=== PATIENT | male | born 1985 | race Caucasian/White ===

== ENCOUNTER 2020-04-28 15:10 | Inpatient (IN) | payer SELFPAY ==
[2020-04-28] MEDS ORDERED: ACETAMINOPHEN 325 MG TABLET PO ONE (16:18)
[2020-04-28] MEDS ORDERED: RINGERS SOLUTION,LACTATED 1,000 ML IV ONE (16:18)
[2020-04-28] MEDS ORDERED: KETOROLAC TROMETHAMINE INJ/PF 30 MG/1 ML SDV IV ONE (16:18)
--- NOTE | 2020-04-28 16:19 | ER Document Report ---
ED Flu Like - General Chief Complaint: Nausea/Vomiting Stated Complaint: COUGH,FEVER,VOMITING,HEADACHE Time Seen by Provider: 04/28/20 15:58 Mode of Arrival: Ambulatory Information source: Patient Notes: 34-year-old male with a past medical history significant for hepatitis C, IV drug use presents to the emergency room complaining of a cough with shortness of breath, nausea, vomiting, body aches for the past 2 days. Subjective fever. Took ibuprofen around noon today without relief. He denies any recent travel. He denies any COVID-19 exposure. Patient does have a history of IV drug use. States he has not injected in the past 2 weeks. TRAVEL OUTSIDE OF THE [place] IN LAST 30 DAYS: No - Related Data Allergies/Adverse Reactions: seafood Allergy (Uncoded 04/28/20 16:06) Past Medical History - General Information source: Patient - Social History Smoking Status: Current Every Day Smoker Chew tobacco use (# tins/day): No Frequency of alcohol use: None Drug Abuse: Heroin, Marijuana, Prescription drugs Family History: Reviewed & Not Pertinent Patient has homicidal ideation: No GI Medical History: Reports: Hx Hepatitis Psychiatric Medical History: Reports: Hx Attention Deficit Hyperactivity Disorder Infectious Medical History: Reports: Hx Hepatitis - Immunizations Hx Diphtheria, Pertussis, Tetanus Vaccination: Yes Review of Systems - Review of Systems Constitutional: Fever EENT: No symptoms reported Cardiovascular: No symptoms reported Respiratory: Cough, Short of breath Gastrointestinal: Nausea, Vomiting. denies: Abdominal pain, Diarrhea, Constipation Genitourinary: No symptoms reported Musculoskeletal: Joint pain, Muscle pain Skin: No symptoms reported Hematologic/Lymphatic: No symptoms reported Neurological/Psychological: No symptoms reported -: Yes All other systems reviewed and negative Physical Exam - Vital signs Vitals: Temp 101.2 F H 04/28/20 15:11 - General General appearance: Appears well, Alert In distress: Mild - HEENT Head: Normocephalic, Atraumatic Eyes: Normal Pupils: PERRL External canal: Normal Tympanic membrane: Normal Sinus: Normal Nasal: Normal Pharynx: Normal Neck: Normal. No: Lymphadenopathy - Respiratory Respiratory status: No respiratory distress Chest status: Nontender Breath sounds: Normal Chest palpation: Normal - Cardiovascular Rhythm: Tachycardia Heart sounds: Normal auscultation Murmur: No - Abdominal Inspection: Normal Distension: No distension Bowel sounds: Normal Tenderness: Nontender Organomegaly: No organomegaly - Extremities General upper extremity: Nontender, Normal ROM, Normal temperature General lower extremity: Normal inspection, Nontender, Normal color, Normal ROM, Normal temperature, Normal weight bearing. No: Haydee's sign Elbow: Nontender, Other - Right elbow with full range of motion. It is nontender to palpation. There is mild erythema not consistent with cellulitis. - Neurological Neuro grossly intact: Yes Cognition: Normal Orientation: AAOx4 [place] Coma Scale Eye Opening: Spontaneous [place] Coma Scale Verbal: Oriented [place] Coma Scale Motor: Obeys Commands Minda Coma Scale Total: 15 Speech: Normal Motor strength normal: LUE, RUE, LLE, RLE Sensory: Normal - Skin Skin Temperature: Warm Skin Moisture: Dry Skin Color: Normal Notes: No concerns for cellulitis to left forearm, left antecubital area where patient states that he has injected in the past 2 weeks. Right elbow mild erythema but no sign of cellulitis. It is not warm or tender to palpation. Course - Re-evaluation Re-evalutation: 04/28/20 17:54 Reviewed patient's lab work with patient. Patient has a history of IV drug use. Asked patient if he had recently injected any spots on his body that could possibly be infected. Patient states he likes to be injected 2 weeks ago in his left forearm, and his left antecubital. Does state that his right elbow started bothering him 2 days ago. Denies any trauma or injury. Will get x-ray of the right elbow. No erythema. It is not warm or tender to palpation. He has full range of motion to the elbow. Negative chest x-ray. No obvious source at this time for his sepsis. Will get EKG, IV antibiotics ordered, urinalysis and remaining labs are still pending. 04/28/20 20:01 All labs were reviewed with the patient. He is aware of need for admission. He is agreeable to the admission. He is aware that the hospitalist Dr. Sousa will come to the emergency room to further evaluate him. Admission orders pending. - Vital Signs Vital signs: Temp Pulse Resp BP Pulse Ox 97.8 F 75 25 H 144/78 H 100 04/29/20 08:24 04/29/20 08:24 04/29/20 08:24 04/29/20 08:24 04/29/20 08:24 - Laboratory Result Diagrams: 04/29/20 05:26 04/29/20 05:26 Laboratory results interpreted by me: 04/28/20 04/28/20 16:39 16:39 WBC 25.4 H RDW 15.5 H Abs Neuts (Manual) 19.1 H Abs Lymphs (Manual) 4.8 H Abs Basophils (Manual) 0.3 H Sodium 135.8 L Glucose 117 H - Diagnostic Test Radiology reviewed: Reports reviewed - EKG Interpretation by Me EKG shows normal: Sinus rhythm Additional EKG results interpreted by me: 04/28/20 19:01 EKG was interpreted by ER physician Dr. Metzger No acute STEMI Normal sinus rhythm Rate of 86 Short MI interval No ST wave abnormalities Unchanged from previous EKG of 10/01/2014 - Consults Dr. Sousa Reason for consultation: 04/28/20 20:00 Reviewed symptoms, lab values, meds given. Agrees with plan of care, accepts admission. Will come to the emergency room to fully evaluate patient. Consulted provider: will come to ER Discharge - Discharge Clinical Impression: Sepsis Qualifiers: Sepsis type: sepsis due to unspecified organism Sepsis acute organ dysfunction status: without acute organ dysfunction Qualified Code(s): A41.9 - Sepsis, unspecified organism Condition: Stable Disposition: ADMITTED INPATIENT Admitting Provider: Angelito Sousa Unit Admitted: Medical Floor
--- NOTE | 2020-04-28 16:40 | RADIOLOGY REPORT (SQ) ---
EXAM DESCRIPTION: CHEST SINGLE VIEW IMAGES COMPLETED DATE/TIME: 04/28/2020 4:33 pm REASON FOR STUDY: cough COMPARISON: None. EXAM PARAMETERS: NUMBER OF VIEWS: One view. TECHNIQUE: Single frontal radiographic view of the chest acquired. RADIATION DOSE: NA LIMITATIONS: None. FINDINGS: LUNGS AND PLEURA: No opacities, masses or pneumothorax. No pleural effusion. MEDIASTINUM AND HILAR STRUCTURES: No masses. Contour normal. HEART AND VASCULAR STRUCTURES: Heart normal in size. Normal vasculature. BONES: No acute findings. HARDWARE: None in the chest. OTHER: No other significant finding. IMPRESSION: NO ACUTE RADIOGRAPHIC FINDING IN THE CHEST. TECHNICAL DOCUMENTATION: JOB ID: [id number] 2010 [employer] ([email or web address])- All Rights Reserved Reading location - IP/workstation name: [email or web address]
[2020-04-28 17:04] LABS: HEMATOCRIT 42.7 % (37.9-51.0); HEMOGLOBIN 14.3 g/dL (13.5-17.0); MEAN CORPUSCULAR HEMOGLOBIN 30.7 pg (27.0-33.4); MEAN CORPUSCULAR HGB CONC 33.6 g/dL (32.0-36.0); MEAN CORPUSCULAR VOLUME 91 fl (80-97); PLATELET COUNT 266 10^3/uL (150-450); RED BLOOD COUNT 4.68 10^6/uL (4.35-5.55); RED CELL DISTRIBUTION WIDTH 15.5 % (11.5-14.0); WHITE BLOOD COUNT 25.4 10^3/uL (4.0-10.5)
[2020-04-28 17:19] LABS: ABSOLUTE LYMPHOCYTES# (MANUAL) 4.8 10^3/uL (0.5-4.7); ABSOLUTE MONOCYTES # (MANUAL) 1.3 10^3/uL (0.1-1.4); ALBUMIN 4.1 g/dL (3.5-5.0); ALKALINE PHOSPHATASE 69 U/L (38-126); ANION GAP 10 (5-19); ASPARTATE AMINO TRANSFERASE 31 U/L (17-59); BASOPHILS % (MANUAL) 1 % (0-2); BILIRUBIN,DIRECT 0.2 mg/dL (0.0-0.4); BILIRUBIN,TOTAL 0.9 mg/dL (0.2-1.3); BLOOD UREA NITROGEN 10 mg/dL (7-20); CALCIUM 9.3 mg/dL (8.4-10.2); CARBON DIOXIDE 25 mmol/L (22-30); CHLORIDE 101 mmol/L (98-107); EOSINOPHILS % (MANUAL) 0 % (0-6); GLUCOSE 117 mg/dL (75-110); LYMPHOCYTES % (MANUAL) 17 % (13-45); MONOCYTES % (MANUAL) 5 % (3-13); POTASSIUM 4.2 mmol/L (3.6-5.0); SEGMENTED NEUTROPHILS % (MAN) 75 % (42-78); TOTAL CELLS COUNTED 100; TOTAL PROTEIN 6.9 g/dL (6.3-8.2)
[2020-04-28 17:20] LABS: ANISOCYTOSIS SLIGHT; OVALOCYTES SLIGHT; PLATELET COMMENT ADEQUATE; POIKILOCYTOSIS SLIGHT
[2020-04-28 17:29] LABS: A TYPE INFLUENZA AG NEGATIVE (NEGATIVE); B INFLUENZA AG NEGATIVE (NEGATIVE)
[2020-04-28] MEDS ORDERED: RINGERS LACTATED IV ONE (17:35)
[2020-04-28] MEDS ORDERED: CEFTRIAXONE 1 GM/D5W RTU 1 GM/50 ML RTUPB IV ONE (17:38)
--- NOTE | 2020-04-28 18:02 | EKG REPORT ---
SEVERITY:- BORDERLINE ECG - SINUS RHYTHM SHORT NM INTERVAL, ACCELERATED AV CONDUCTION : Confirmed by: Yousuf Elkins MD 28-Apr-2020 18:01:55
[2020-04-28 18:18] LABS: INTERNATIONAL RATION (INR) 1.16
--- NOTE | 2020-04-28 18:24 | RADIOLOGY REPORT (SQ) ---
EXAM DESCRIPTION: ELBOW RIGHT OVER 2 VIEWS IMAGES COMPLETED DATE/TIME: 04/28/2020 6:11 pm REASON FOR STUDY: pain COMPARISON: None. NUMBER OF VIEWS: Four views. TECHNIQUE: AP, lateral, and both oblique radiographic images acquired of the right elbow. LIMITATIONS: None. FINDINGS: MINERALIZATION: Normal. BONES: No acute fracture or dislocation. No worrisome bone lesions. JOINT: No effusion. SOFT TISSUES: No soft tissue swelling. No foreign body. OTHER: No other significant finding. IMPRESSION: NEGATIVE STUDY OF THE RIGHT ELBOW. NO RADIOGRAPHIC EVIDENCE OF ACUTE INJURY. TECHNICAL DOCUMENTATION: JOB ID: [id number] 2010 [employer]- All Rights Reserved Reading location - IP/workstation name: [email or web address]
[2020-04-28 18:47] LABS: APPEARANCE,URINE CLEAR; BILIRUBIN,URINE NEGATIVE (NEGATIVE); COLOR,URINE YELLOW; GLUCOSE, URINE NEGATIVE (NEGATIVE); KETONES,URINE NEGATIVE (NEGATIVE); LEUKOCYTE ESTERASE,URINE NEGATIVE (NEGATIVE); NITRITE,URINE NEGATIVE (NEGATIVE); PROTEIN,URINE NEGATIVE (NEGATIVE); URINE SPECIFIC GRAVITY 1.012; UROBILINOGEN,URINE NEGATIVE mg/dL (<2.0)
[2020-04-28 18:50] LABS: URINE AMPHETAMINES SCREEN NEGATIVE; URINE BARBITURATES SCREEN NEGATIVE; URINE BENZODIAZEPINES SCREEN NEGATIVE; URINE COCAINE SCREEN NEGATIVE; URINE METHADONE SCREEN NEGATIVE; URINE PHENCYCLIDINE SCREEN NEGATIVE
[2020-04-28 18:51] LABS: URINE MARIJUANA (THC) SCREEN UNCONFIRMED POSITIVE
[2020-04-28] MEDS ORDERED: VANCOMYCIN HCL INJ 1000 MG VIAL IV ONE (19:59)
[2020-04-28] MEDS ORDERED: VANCOMYCIN HCL 0 MG in DEXTROSE 5%-WATER 250 ML IV NR (21:00)
--- NOTE | 2020-04-28 21:19 | PDOC H&P ---
History of Present Illness Admission Date/PCP: 04/28/2020 Patient complains of: Fever, cough, right elbow pain History of Present Illness: AYAAN DEUTSCH is a 34 year old male with history of hep C infection and IV drug abuse who presents with 2 days duration of fever, generalized body aches, nausea, vomiting of ingested matter and headache. He also reports that he has cough productive of scanty brown sputum. Treated with this he also endorses mild exertional shortness of breath. Patient reports that his girlfriend's mom was diagnosed with COVID-19 about 2 weeks back does not think that he was in close contact with her. He also reports right elbow pain which started 2 days ago when he woke up from a nap but he denies any history of trauma and x-ray done at the ER showed no radiographic evidence of fracture or dislocation. Patient is an active IV drug(heroin) user and his last use was a week ago. Past Medical History GI Medical History: Reports: Hepatitis Psychiatric Medical History: Reports: Attention Deficit Hyperactivity Disorder Social History Information Source: Patient Smoking Status: Current Every Day Smoker Electronic Cigarette use?: No Frequency of Alcohol Use: None Drugs: Heroin - Advance Directive Resuscitation Status: Full Code Family History Family History: Reviewed & Not Pertinent Parental Family History Reviewed: Yes Children Family History Reviewed: Yes Sibling(s) Family History Reviewed.: Yes Medication/Allergy Home Medications: No Home Medications 04/28/20 Allergies/Adverse Reactions: seafood Allergy (Uncoded 04/28/20 16:06) Review of Systems Constitutional: PRESENT: as per HPI Eyes: ABSENT: visual disturbances Ears: ABSENT: hearing changes Nose, Mouth, and Throat: ABSENT: as per HPI, headache(s), mouth pain, sore throat, vertigo, other Cardiovascular: ABSENT: edema, orthropnea, palpitations Respiratory: PRESENT: as per HPI Gastrointestinal: ABSENT: abdominal pain, constipation, diarrhea, hematemesis, hematochezia, nausea, vomiting Genitourinary: ABSENT: dysuria, hematuria Musculoskeletal: PRESENT: joint swelling, muscle weakness. ABSENT: as per HPI, back pain, deformity Neurological: ABSENT: abnormal gait, abnormal speech, confusion, dizziness, focal weakness, syncope Psychiatric: ABSENT: anxiety, depression, homidical ideation, suicidal ideation Endocrine: ABSENT: cold intolerance, heat intolerance, polydipsia, polyuria Hematologic/Lymphatic: ABSENT: easy bleeding, easy bruising Physical Exam Vital Signs: Temp Pulse Resp BP Pulse Ox 98.0 F 111 H 17 134/80 H 95 04/28/20 19:56 04/28/20 15:18 04/28/20 18:11 04/28/20 18:11 04/28/20 18:11 Intake & Output 04/27/20 04/28/20 04/29/20 06:59 06:59 06:59 Intake Total 1050 Balance 1050 Weight 104.5 kg Additional comments: GENERAL APPEARANCE: Well-developed, well-nourished, in no acute distress. HEENT: Normocephalic and atraumatic. No scleral icterus. PERRLA, EOMs are full, no conjunctival injection is noted. Moist oral mucosa with good dentition NECK: Supple. Trachea is midline. No evidence of thyroid enlargement. No lymphadenopathy or tenderness. No carotid bruit. No JVD CHEST: Symmetric. Nontender to palpation. LUNGS: Breath sounds are equal and clear bilaterally. No wheezes, rhonchi, or rales. HEART: Regular rate and rhythm with normal S1 and S2. No murmurs, gallops, or rubs. ABDOMEN: Soft, moves with respiration, positive bowel sound, no direct or rebound tenderness, no organomegaly noted. No CVA tenderness. EXTREMITIES: No cyanosis, clubbing, or edema. MUSCULOSKELETAL: No deformity, atrophy or swelling noted PSYCHIATRIC: The patient is awake, alert, and oriented x3. Appropriate mood and affect. SKIN: Warm, dry, and well perfused. No lesions or rashes are noted. NEUROLOGIC: No focal sensory or motor deficits are noted. Results Laboratory Results: 04/28/20 16:39 04/28/20 16:39 04/28/20 04/28/20 04/28/20 16:39 16:39 18:02 WBC 25.4 H RBC 4.68 Hgb 14.3 Hct 42.7 MCV 91 MCH 30.7 MCHC 33.6 RDW 15.5 H Plt Count 266 Seg Neutrophils % Not Reportable Sodium 135.8 L Potassium 4.2 Chloride 101 Carbon Dioxide 25 Anion Gap 10 BUN 10 Creatinine 0.79 Est GFR ( Amer) > 60 Glucose 117 H Lactic Acid 1.2 Calcium 9.3 Total Bilirubin 0.9 AST 31 Alkaline Phosphatase 69 Total Protein 6.9 Albumin 4.1 Urine Color Urine Appearance Urine pH Ur Specific [place] Urine Protein Urine Glucose (UA) Urine Ketones Urine Blood Urine Nitrite Ur Leukocyte Esterase Urine WBC (Auto) Urine RBC (Auto) 04/28/20 18:02 WBC RBC Hgb Hct MCV MCH MCHC RDW Plt Count Seg Neutrophils % Sodium Potassium Chloride Carbon Dioxide Anion Gap BUN Creatinine Est GFR ( Amer) Glucose Lactic Acid Calcium Total Bilirubin AST Alkaline Phosphatase Total Protein Albumin Urine Color YELLOW Urine Appearance CLEAR Urine pH 6.0 Ur Specific [place] 1.012 Urine Protein NEGATIVE Urine Glucose (UA) NEGATIVE Urine Ketones NEGATIVE Urine Blood NEGATIVE Urine Nitrite NEGATIVE Ur Leukocyte Esterase NEGATIVE Urine WBC (Auto) 1 Urine RBC (Auto) 1 Impressions: Chest X-Ray 04/28/20 16:17 IMPRESSION: NO ACUTE RADIOGRAPHIC FINDING IN THE CHEST. Elbow X-Ray 04/28/20 17:50 IMPRESSION: NEGATIVE STUDY OF THE RIGHT ELBOW. NO RADIOGRAPHIC EVIDENCE OF ACUTE INJURY. Assessment and Plan - Diagnosis (1) Sepsis Qualifiers: Sepsis type: sepsis due to unspecified organism Sepsis acute organ dysfunction status: without acute organ dysfunction Qualified Code(s): A41.9 - Sepsis, unspecified organism Is this a current diagnosis for this admission?: Yes Plan: Patient presents with cough, generalized body aches and fever of 100.2 Considering patient's history of IV drug use likely source could be possible infective endocarditis has positive contact history with COVID-19 patient Patient made 3/4 of SIRS criteria including fever, tachycardia and leukocytosis with a WBC count of 25.4k with left shift Chest x-ray and urine analysis unremarkable 2 sets of blood culture obtained at the ER Started him on vancomycin and cefepime No clear source of infection at this point but may consider echo due to history of IV drug abuse (2) Suspected COVID-19 virus infection Is this a current diagnosis for this admission?: Yes Plan: Has a positive contact history with confirmed COVID-19 patient Follow-up with COVID-19 test result Follow-up with ferritin, C-reactive protein, CK, LDH levels Currently saturating well on room air chest ray x-ray showed no acute finding symptomatic management with adequate hydration, respiratory support if necessary and control of fever (3) Fever Is this a current diagnosis for this admission?: Yes Plan: Patient had a temperature of 102 Likely due to infectious source as discussed above Tylenol as needed (4) IV drug user Is this a current diagnosis for this admission?: Yes Plan: Patient reports a history of IV heroin use Last use was a week ago Counseled patient on the harms of IV drug use and advised him to quit (5) Leukocytosis Is this a current diagnosis for this admission?: Yes Plan: Presented with WBC count of 25.4 on presentation with a left shift Currently on IV Vanco and cefepime Will continue to monitor CBC (6) Hepatitis C infection Qualifiers: Viral hepatitis chronicity: chronic Hepatic coma status: without hepatic coma Qualified Code(s): B18.2 - Chronic viral hepatitis C Is this a current diagnosis for this admission?: Yes Plan: Unclear whether patient was treated or not Consider referral to ID/GI on discharge - Time Time Spent with patient: 35 or more minutes Total Critical Time (Minutes): 40 Smoking Cessation Education: 3 to 10 minutes Medications reviewed and adjusted accordingly: Yes Anticipated Discharge Disposition: Home, Self Care Anticipated Discharge Timeframe: within 72 hours - Inpatient Certification Based on my medical assessment, after consideration of the patient's comorbidities, presenting symptoms, or acuity I expect that the services needed warrant INPATIENT care.: Yes I certify that my determination is in accordance with my understanding of Medicare's requirements for reasonable and necessary INPATIENT services [42 CFR 412.3e].: Yes Medical Necessity: Need Close Monitoring Due to Risk of Patient Decompensation, Need for IV Antibiotics Post Hospital Care: D/C or Transfer Summary
[2020-04-28] MEDS ORDERED: CEFEPIME 2 GM/D5W RTU 2 GM/50 ML RTUPB IV SCH (22:00)
[2020-04-28] MEDS: CEFEPIME HCL 2 GM in DEXTROSE 5%-WATER 50 ML IV SCH (22:41)
[2020-04-28] MEDS: RINGERS SOLUTION,LACTATED 1,000 ML IV PRN (23:30)
[2020-04-29] MEDS: VANCOMYCIN HCL 1,250 MG in DEXTROSE 5%-WATER 250 ML IV SCH ×3 (03:08→20:00)
[2020-04-29 05:56] LABS: ABSOLUTE EOSINOPHILS # (AUTO) 0.1 10^3/uL (0.0-0.6); ABSOLUTE LYMPHOCYTES (AUTO) 2.7 10^3/uL (0.5-4.7); ABSOLUTE MONOCYTES (AUTO) 1.7 10^3/uL (0.1-1.4); ABSOLUTE NEUT (AUTO) 13.6 10^3/uL (1.7-8.2); BASOPHILS % (AUTO) 0.3 % (0-2); EOSINOPHILS % (AUTO) 0.5 % (0-6); HEMATOCRIT 42.7 % (37.9-51.0); HEMOGLOBIN 14.4 g/dL (13.5-17.0); LYMPHOCYTES % (AUTO) 14.7 % (13-45); MEAN CORPUSCULAR HEMOGLOBIN 30.6 pg (27.0-33.4); MEAN CORPUSCULAR HGB CONC 33.6 g/dL (32.0-36.0); MEAN CORPUSCULAR VOLUME 91 fl (80-97); MONOCYTES % (AUTO) 9.2 % (3-13); PLATELET COUNT 218 10^3/uL (150-450); RED CELL DISTRIBUTION WIDTH 15.2 % (11.5-14.0); SEGMENTED NEUTROPHILS % (AUTO) 75.3 % (42-78); TOTAL CELLS COUNTED % (AUTO) 100 %; WHITE BLOOD COUNT 18.1 10^3/uL (4.0-10.5)
[2020-04-29 06:25] LABS: ALBUMIN 3.5 g/dL (3.5-5.0); ALKALINE PHOSPHATASE 60 U/L (38-126); ANION GAP 8 (5-19); ASPARTATE AMINO TRANSFERASE 27 U/L (17-59); BILIRUBIN,DIRECT 0.3 mg/dL (0.0-0.4); BILIRUBIN,TOTAL 0.7 mg/dL (0.2-1.3); BLOOD UREA NITROGEN 11 mg/dL (7-20); CALCIUM 9.2 mg/dL (8.4-10.2); CARBON DIOXIDE 26 mmol/L (22-30); CHLORIDE 106 mmol/L (98-107); GLUCOSE 107 mg/dL (75-110); POTASSIUM 4.2 mmol/L (3.6-5.0); TOTAL PROTEIN 6.3 g/dL (6.3-8.2)
[2020-04-29 06:51] LABS: C-REACTIVE PROTEIN 146.2 mg/L (<10.0); FERRITIN 52.5 ng/mL (17.9-464.0)
[2020-04-29] MEDS: LORAZEPAM INJ 2 MG/1 ML VIAL IV PRN ×7 (09:26→23:59)
--- NOTE | 2020-04-29 09:41 | PDOC PROGRESS REPORT ---
Subjective Progress Note for:: 04/29/20 Subjective:: 34 year old male with history of hep C infection and IV drug abuse who presents with 2 days duration of fever, generalized body aches, nausea, vomiting of ingested matter and headache. He also reports that he has cough productive of scanty brown sputum. Treated with this he also endorses mild exertional shortness of breath. Patient reports that his girlfriend's mom was diagnosed with COVID-19 about 2 weeks back does not think that he was in close contact with her. He also reports right elbow pain which started 2 days ago when he woke up from a nap but he denies any history of trauma and x-ray done at the ER showed no radiographic evidence of fracture or dislocation. Patient is an active IV drug(heroin) user and his last use was a week ago. 04/29/2098-25-mppz-old male with history of IV drug abuse used heroin last night, hep C came in with generalized weakness fever nausea and vomitings. To start him on Ativan 1 mg every 2 hours as needed for agitation. COVID-19 is pending at this time. Admitting diagnosis is sepsis, started on IV cefepime, vanc omycin. Echocardiogram is pending. Reason For Visit: SEPSIS,COVID 19 SUSPECT Physical Exam Vital Signs: Temp Pulse Resp BP Pulse Ox 97.8 F 75 25 H 144/78 H 100 04/29/20 08:24 04/29/20 08:24 04/29/20 08:24 04/29/20 08:24 04/29/20 08:24 Intake & Output 04/28/20 04/29/20 04/30/20 06:59 06:59 06:59 Intake Total 4484 Balance 4484 Weight 95.7 kg General appearance: PRESENT: no acute distress, well-developed Head exam: PRESENT: atraumatic Eye exam: PRESENT: PERRLA Mouth exam: PRESENT: moist, tongue midline Teeth exam: PRESENT: poor dentation Neck exam: ABSENT: carotid bruit, JVD, lymphadenopathy, thyromegaly Respiratory exam: PRESENT: clear to auscultation madi. ABSENT: decreased breath sounds Cardiovascular exam: PRESENT: RRR. ABSENT: diastolic murmur, rubs, systolic murmur Pulses: PRESENT: normal dorsalis pedis pul GI/Abdominal exam: PRESENT: normal bowel sounds, soft. ABSENT: distended, guarding, mass, organolmegaly, rebound, tenderness Rectal exam: PRESENT: deferred Extremities exam: PRESENT: full ROM. ABSENT: calf tenderness, clubbing, pedal e louis Neurological exam: PRESENT: alert, awake, oriented to person, oriented to place, oriented to time, oriented to situation, CN II-XII grossly intact. ABSENT: motor sensory deficit Psychiatric exam: PRESENT: appropriate affect, normal mood. ABSENT: homicidal ideation, suicidal ideation Skin exam: PRESENT: other - Body is covered with tattoos. Results Laboratory Results: 04/29/20 05:26 04/29/20 05:26 04/28/20 04/28/20 04/28/20 16:39 16:39 18:02 WBC 25.4 H RBC 4.68 Hgb 14.3 Hct 42.7 MCV 91 MCH 30.7 MCHC 33.6 RDW 15.5 H Plt Count 266 Seg Neutrophils % Not Reportable Sodium 135.8 L Potassium 4.2 Chloride 101 Carbon Dioxide 25 Anion Gap 10 BUN 10 Creatinine 0.79 Est GFR ( Amer) > 60 Glucose 117 H Lactic Acid 1.2 Calcium 9.3 Ferritin Total Bilirubin 0.9 AST 31 Alkaline Phosphatase 69 C-Reactive Protein Total Protein 6.9 Albumin 4.1 Urine Color Urine Appearance Urine pH Ur Specific [place] Urine Protein Urine Glucose (UA) Urine Ketones Urine Blood Urine Nitrite Ur Leukocyte Esterase Urine WBC (Auto) Urine RBC (Auto) 04/28/20 04/29/20 04/29/20 18:02 05:26 05:26 WBC 18.1 H RBC 4.70 Hgb 14.4 Hct 42.7 MCV 91 MCH 30.6 MCHC 33.6 RDW 15.2 H Plt Count 218 Seg Neutrophils % 75.3 Sodium 140.4 Potassium 4.2 Chloride 106 Carbon Dioxide 26 Anion Gap 8 BUN 11 Creatinine 0.75 Est GFR ( Amer) > 60 Glucose 107 Lactic Acid Calcium 9.2 Ferritin Total Bilirubin 0.7 AST 27 Alkaline Phosphatase 60 C-Reactive Protein Total Protein 6.3 Albumin 3.5 Urine Color YELLOW Urine Appearance CLEAR Urine pH 6.0 Ur Specific [place] 1.012 Urine Protein NEGATIVE Urine Glucose (UA) NEGATIVE Urine Ketones NEGATIVE Urine Blood NEGATIVE Urine Nitrite NEGATIVE Ur Leukocyte Esterase NEGATIVE Urine WBC (Auto) 1 Urine RBC (Auto) 1 04/29/20 05:26 WBC RBC Hgb Hct MCV MCH MCHC RDW Plt Count Seg Neutrophils % Sodium Potassium Chloride Carbon Dioxide Anion Gap BUN Creatinine Est GFR ( Amer) Glucose Lactic Acid Calcium Ferritin 52.50 Total Bilirubin AST Alkaline Phosphatase C-Reactive Protein 146.2 H Total Protein Albumin Urine Color Urine Appearance Urine pH Ur Specific [place] Urine Protein Urine Glucose (UA) Urine Ketones Urine Blood Urine Nitrite Ur Leukocyte Esterase Urine WBC (Auto) Urine RBC (Auto) 04/29/20 04/29/20 05:26 05:26 Creatine Kinase 71 CK-MB (CK-2) 0.34 Impressions: Chest X-Ray 04/28/20 16:17 IMPRESSION: NO ACUTE RADIOGRAPHIC FINDING IN THE CHEST. Elbow X-Ray 04/28/20 17:50 IMPRESSION: NEGATIVE STUDY OF THE RIGHT ELBOW. NO RADIOGRAPHIC EVIDENCE OF ACUTE INJURY. Assessment and Plan - Diagnosis (1) Sepsis Qualifiers: Sepsis type: sepsis due to unspecified organism Sepsis acute organ dysfunction status: without acute organ dysfunction Qualified Code(s): A41.9 - Sepsis, unspecified organism Is this a current diagnosis for this admission?: Yes Plan: Patient presents with cough, generalized body aches and fever of 100.2 Considering patient's history of IV drug use likely source could be possible infective endocarditis has positive contact history with COVID-19 patient Patient made 3/4 of SIRS criteria including fever, tachycardia and leukocytosis with a WBC count of 25.4k with left shift Chest x-ray and urine analysis unremarkable 2 sets of blood culture obtained at the ER Started him on vancomycin and cefepime No clear source of infection at this point but may consider echo due to history of IV drug abuse 04/29/2020-plan is to continue IV cefepime, IV vancomycin. Blood cultures are pending at this time. Echocardiogram is requested. covid 19 testing is pending. (2) Suspected COVID-19 virus infection Is this a current diagnosis for this admission?: Yes Plan: Has a positive contact history with confirmed COVID-19 patient Follow-up with COVID-19 test result Follow-up with ferritin, C-reactive protein, CK, LDH levels Currently saturating well on room air chest ray x-ray showed no acute finding symptomatic management with adequate hydration, respiratory support if necessary and control of fever 04/29/2020-ferritin level is 52.5, CRP is 146. CK 71. To check for the D-dimer and LDH. pulse ox is 100% on room air. (3) Hepatitis C infection Qualifiers: Viral hepatitis chronicity: chronic Hepatic coma status: without hepatic coma Qualified Code(s): B18.2 - Chronic viral hepatitis C Is this a current diagnosis for this admission?: Yes Plan: Unclear whether patient was treated or not Consider referral to ID/GI on discharge (4) IV drug user Is this a current diagnosis for this admission?: Yes Plan: Patient reports a history of IV heroin use Last use was a week ago Counseled patient on the harms of IV drug use and advised him to quit 04/29/2020-patient admitted to using heroin yesterday. Started on IV lorazepam 1 mg IV every 2 hours as needed for agitation and anxiety. (5) Leukocytosis Is this a current diagnosis for this admission?: Yes Plan: Presented with WBC count of 25.4 on presentation with a left shift Currently on IV Vanco and cefepime Will continue to monitor CBC 04/29/2020-latest WBC count is 18,000. Leukocytosis improving. Most likely secondary to sepsis. Plan is to continue IV Vanco and cefepime.. - Time Anticipated Discharge Disposition: Home, Self Care Anticipated Discharge Timeframe: within 72 hours
[2020-04-29] MEDS ORDERED: NICOTINE 21 MG/24 HR PATCH.TD24 TD SCH (10:00)
[2020-04-29] MEDS: CEFEPIME HCL 2 GM in DEXTROSE 5%-WATER 50 ML IV SCH ×2 (11:06→21:49)
[2020-04-29] MEDS: RINGERS SOLUTION,LACTATED 1,000 ML IV PRN ×2 (12:52→19:27)
[2020-04-29] MEDS ORDERED: PANTOPRAZOLE SODIUM 40 MG TABLET.DR PO SCH (17:00)
[2020-04-30] MEDS ORDERED: LORAZEPAM INJ 2 MG/1 ML VIAL IV ONE
[2020-04-30] MEDS ORDERED: VANCOMYCIN HCL 1,000 MG in DEXTROSE 5%-WATER 250 ML IV SCH ×2
[2020-04-30] MEDS: LORAZEPAM INJ 2 MG/1 ML VIAL IV PRN (02:04)
[2020-04-30 04:05] VITALS: BP 143/89
--- NOTE | 2020-04-30 04:43 | ADVANCED CARE ---
- Diagnosis (1) Sepsis Diagnosis Current: Yes (2) Suspected COVID-19 virus infection Diagnosis Current: Yes (3) Fever Diagnosis Current: Yes (4) IV drug user Diagnosis Current: Yes (5) Leukocytosis Diagnosis Current: Yes (6) Hepatitis C infection Diagnosis Current: Yes Resuscitation Status: Full Code
--- NOTE | 2020-04-30 04:45 | Left Against Medical Advice ---
Against Medical Advice Admission Date/Time: 04/28/20 22:01 Primary Care Provider: Date of Patient Emigration: 04/30/20 - Diagnosis: (1) Sepsis Is this a current diagnosis for this admission?: Yes (2) Suspected COVID-19 virus infection Is this a current diagnosis for this admission?: Yes (3) Fever Is this a current diagnosis for this admission?: Yes (4) IV drug user Is this a current diagnosis for this admission?: Yes (5) Leukocytosis Is this a current diagnosis for this admission?: Yes (6) Hepatitis C infection Is this a current diagnosis for this admission?: Yes - Summary: Summary: Please see Admission and Progress Notes as well. AYAAN DEUTSCH is a 34 M, who LEFT AGAINST MEDICAL ADVICE. The Patient was admitted on 04/28/20 22:01.
[2020-04-30] MEDS ORDERED: INFLUENZA QUAD (6MOS+) 2020-21 VAC 0.5 ML SYR IM ONE (08:00)
--- NOTE | 2020-05-02 23:49 | XCELERA REPORT ---
[address] [address] Transthoracic Echocardiogram Report Name: AYAAN DEUTSCH Age: 34 yrs Gender: Male : 1985 Patient Status: Inpatient Patient Location: [address] [place] [address] Study Date: 04/29/2020 08:40 AM Height: 68 in Weight: 210 lb BSA: 2.1 m2 Procedure: A two-dimensional transthoracic echocardiogram with color flow and Doppler was performed. The study was technically difficult with many images being suboptimal in quality. Reason For Study: r/o endocarditis History: Endocarditis. Ordering Physician: HEATHER SLADE Performed By: Mariann Peña Interpretation Summary No vegetations or evidence of endocarditis.Consier FUNMILAYO if clinical suspicion is high. The left ventricle is normal in size, thickness and function. There is normal left ventricular wall thickness. LV EF is Greater than 60% The left ventricular wall motion is normal. There is no thrombus. No ASD ,VSD or PFO seen. The right ventricle is normal in size and function. The right atrium is normal. The left atrial size is normal. There is no evidence of mitral valve prolapse. There is no vegetation seen on the mitral valve. There is no mitral valve stenosis. There is a trace amount of mitral regurgitation There is no aortic valvular vegetation. There is no aortic valve stenosis There is no LVOT obstruction. No aortic regurgitation is present. There is no tricuspid valve vegetation. There is no tricuspid stenosis. There is a trace amount of tricuspid regurgitation Tricuspid regurgitation jet envelope not well defined to measure RV systolic pressure accurately. There is no pulmonic valvular stenosis. There is no pulmonic valvular regurgitation. The aortic root is not well visualized but is probably normal size. The inferior vena cava appeared dilated and decreased < 50% with respiration (RAP 15-20 mmHg) There is no pericardial effusion. No vegetations or evidence of endocarditis.Consier FUNMILAYO if clinical suspicion is high. MMode/2D Measurements & Calculations RVDd: 2.2 cm LVIDd: 5.5 cm FS: 32.1 % Ao root diam: 2.5 cm IVSd: 1.1 cm LVIDs: 3.7 cm EDV(Teich): 145.6 ml Ao root area: 4.8 cm2 LVPWd: 0.83 cm ESV(Teich): 58.6 ml EF(Teich): 59.8 % Doppler Measurements & Calculations MV E max ciera: MV dec slope: Ao V2 max: LV V1 max P.5 cm/sec 403.5 cm/sec2 132.2 cm/sec 3.5 mmHg MV A max ciera: MV dec time: 0.22 secAo max PG: LV V1 max: 63.1 cm/sec 7.0 mmHg 93.3 cm/sec MV E/A: 1.4 PA V2 max: 79.7 cm/sec PA max P.5 mmHg Left Ventricle The left ventricle is normal in size, thickness and function. There is normal left ventricular wall thickness. Left ventricular systolic function is normal. LV EF is Greater than 60%. Doppler measurements suggest normal left ventricular diastolic function. The left ventricular wall motion is normal. There is no thrombus. No ASD ,VSD or PFO seen. Right Ventricle The right ventricle is normal in size and function. Atria The right atrium is normal. The left atrial size is normal. Mitral Valve There is no evidence of mitral valve prolapse. There is no vegetation seen on the mitral valve. There is no mitral valve stenosis. There is a trace amount of mitral regurgitation. Aortic Valve There is no aortic valvular vegetation. There is no aortic valve stenosis. There is no LVOT obstruction. No aortic regurgitation is present. Tricuspid Valve There is no tricuspid valve vegetation. There is no tricuspid stenosis. There is a trace amount of tricuspid regurgitation. Tricuspid regurgitation jet envelope not well defined to measure RV systolic pressure accurately. Pulmonic Valve There is no vegetation on the pulmonic valve. There is no pulmonic valvular stenosis. There is no pulmonic valvular regurgitation. Great Vessels The aortic root is not well visualized but is probably normal size. The inferior vena cava appeared dilated and decreased < 50% with respiration (RAP 15-20 mmHg). Effusions There is no pericardial effusion. : HEATHER SLADE Lakshmi
== END 2020-04-30 03:56 | disposition left against medical advice (07) | DRG 872 ==
LOC: ER 15:10 → EH 22:01 → 3W 04-29 02:17 → 3N 04-29 14:53
PROVIDERS: ADMIT Student in an Organized Health Care Education/Training Program; ATTEND Internal Medicine
PROC: B24BZZZ Ultrasonography of Heart with Aorta (ICD-10-PCS; principal; 2020-04-29)
DX: A41.9 Sepsis, unspecified organism (principal); F11.90 Opioid use, unspecified, uncomplicated; B18.2 Chronic viral hepatitis C; Z20.828 Contact with and (suspected) exposure to other viral communicable diseases; M25.521 Pain in right elbow; F90.9 Attention-deficit hyperactivity disorder, unspecified type; F17.200 Nicotine dependence, unspecified, uncomplicated; Z91.013 Allergy to seafood; Z71.51 Drug abuse counseling and surveillance of drug abuser
CPT/HCPCS: 36415; 71045; 80053; 80202; 80307; 81001; 82550; 82553; 82728; 83605; 85025; 85610; 86140; 87040; 87635; 87804; 93005; 93010; 93306; 96361; 96365; 96367; 96375; 99285; C9803; J0692; J0696; J1885; J2060; J3370; J3490; J7060; J7120